=== PATIENT | female | born 1950 | race Caucasian/White ===

== ENCOUNTER → 2020-12-28 15:11 | Outpatient (CLI) | payer MEDICARE, SELFPAY ==
--- NOTE | ~2020-12-28 | MR_ITS ---
EXAMINATION: MR knee RT wo con DATE: 12/28/2020 16:09 INDICATION: Right knee pain. TECHNIQUE: Magnetic resonance imaging (MRI) of the right knee was performed without intravenous contr ast. Sequences included axial PD-weighted FS FSE, coronal T1-weighted FSE, coronal PD-weighted FS FSE , and STIR FSE, sagittal PD-weighted FSE, sagittal T2-weighted FSE, and sagittal T2-weighted FS FSE. COMPARISON: None. FINDINGS: Medial compartment: There is a complex tear involving body and posterior horn of medial meniscus. There is shallow partia l-thickness cartilage loss of femoral condyle involving the medial articular surface. There is cartil age surface irregularity of tibial condyle. There is subchondral edema-like marrow signal intensity i nvolving the tibial condyle anteromedially. Marginal osteophytes are noted. Lateral compartment: Lateral meniscus is normal. There is cartilage surface irregularity of tibial condyle. Femoral cartil age is normal. Patellofemoral compartment: There is full-thickness cartilage loss of patellar median ridge and medial facet with mild subchondra l edema-like marrow signal intensity. There is full-thickness cartilage loss of central trochlea with mild subchondral edema-like marrow signal intensity. Marginal osteophytes are noted. Ligaments and tendons: The anterior and posterior cruciate ligaments are normal. Medial collateral ligaments and lateral col lateral ligament complex are intact. There is mild patellar tendinopathy. Fluid: There is a small knee joint effusion. There is a small ruptured Malave's cyst. There is mild prepatell ar and superficial infrapatellar bursitis. IMPRESSION: 1. Severe chondrosis of patellofemoral compartment and mild chondrosis of medial and lateral compartm ents. 2. Tear of medial meniscus. 3. Small knee joint effusion. 4. Small ruptured Malave's cyst. Reviewed, dictated and finalized at location A. IMPRESSION: 1. Severe chondrosis of patellofemoral compartment and mild chondrosis of media l and lateral compartments. 2. Tear of medial meniscus. 3. Small knee joint effusion. 4. Small ruptured Malave's cyst.
== END ==
PROVIDERS: Visit Provider Nurse Practitioner Family
DX: M25.461 Effusion, right knee (principal); M71.21 Synovial cyst of popliteal space [Baker], right knee; S83.241A Other tear of medial meniscus, current injury, right knee, initial encounter; X58.XXXA Exposure to other specified factors, initial encounter
CPT/HCPCS: 73721

== ENCOUNTER 2025-04-10 13:49 | Outpatient (CLI) | payer MEDICARE, SELFPAY ==
--- NOTE | ~2025-04-10 | DEXA_ITS ---
Bone Density Report Name: ALICIA VARGAS Age: 74 Sex: Female Ethnicity: White Date of : 1950 Indication: hyperparathyroidism; height loss; Referring Provider: JULIET HAMMER Study: Bone densitometry was performed. Exam Date: April 10, 2025 Accession number: [id number] Bone Density: Region BMD T-score Z-score Classification AP Spine(L1-L4) 1.048 0.0 2.3 Normal Femoral Neck (Left) 0.763 -0.8 1.2 Normal Total Hip (Left) 1.035 0.8 2.4 Normal Femoral Neck (Right) 0.741 -1.0 1.0 Normal Total Hip (Right) 1.023 0.7 2.3 Normal Femoral Neck Mean 0.752 -0.9 1.1 Normal Total Hip Mean 1.029 0.7 2.4 Normal World Health Organization criteria for BMD impression classify patients as: Normal (T-score at or above -1.0), Osteopenia (T-score between -1.0 and -2.5), or Osteoporosis (T-score at or below -2.5). 10-year Fracture Risk: FRAX not reported because: All T-scores for Spine Total, Hip Total, Femoral Neck at or above -1.0 Clinical Information Provided by Patient: Smokes Has the following medical conditions: Hyperparathyroidism Patient maximum height was 64 Menopause Age: 52 Does not regularly consume dairy products Drinks caffeinated beverages Onset of menses at age 15 Number of children 2 Impression: The patient has normal bone mass. The patient has risk factors, including: smoking. Discussion: BONE DENSITY IS ABOVE THE MINIMUM DESIRABLE LEVEL AT ALL SKELETAL SITES TESTED. This patient?s bone mineral density is above the minimum desirable level (T-score -1.0 or better) at all sites measured. The patient should follow a healthful lifestyle (good nutrition with adequate calcium and vitamin D, and appropriate weight-bearing exercise). Follow-Up: Consider repeating this study in 5 years or sooner if there is some new clinical indication. Reported by: MONCHO on 04/10/2025 2:24:00 PM. Reviewed, dictated and finalized at location A.
--- NOTE | ~2025-04-10 | MM_ITS ---
EXAMINATION: MM screening ewa BI w julieth HISTORY: Screening TECHNIQUE: Craniocaudal and mediolateral oblique 3-D tomosynthesis images were obtained and synthetic 2-D images were generated. CAD analysis was submitted and interpreted. COMPARISON: No prior mammogram is available for comparison at this institution. BREAST PARENCHYMAL COMPOSITION: The breasts are heterogeneously dense, which may obscure small masses. FINDINGS: There is no evidence of suspicious mass, calcification, or architectural distortion to suggest malignancy. IMPRESSION: 1. No mammographic evidence of malignancy. Recommend routine screening mammography in one year. BI-RADS Category 2: Benign finding(s) Reviewed, dictated and finalized at location Q. IMPRESSION: 1. No mammographic evidence of malignancy. Recommend routine screening mammogra phy in one year. BI-RADS Category 2: Benign finding(s)
--- OUTSIDE RECORDS SUMMARY | 2025-04-10 13:55 | XMS_ITS | Patient Health Record ---
Author Organization [facility] dicine Address [address] [place] [address] Care Team Providers Care Line Walker Name Role Phone Dr. Valeri Holcomb Primary Care Provider [phone] Valeri Garcia Unavailable [phone] Migration, Provider Unavailable Unavailable Allergies Allergen (clinical drug ingredient) Drug/Non Drug Allergy documented on EMR Reaction Allergy Type Onset Date Status rosuvastatin Crestor muscle cramps Drug Allergy 10/24/2021 Active pregabalin Lyrica Unknown Drug Allergy 11/20/2020 Activ e atorvastatin Atorvastatin muscle cramps Drug Allergy 022 Active ritonavir Paxlovid (150/100) rash to neck and torso Drug Allergy 03/22/2022 Active nirmatrelvir Paxlovid (150/100) rash to neck and torso Drug Allergy 03/22/2022 Active Results Component Value Reference Range Flag Notes Free T4 And TSH Reviewed date:10/08/2024 05:54:25 PM Interpretation: Performing Lab: Notes/Report: [facility] # [id number] Test Performed by: [address] [address] Utility System Repairer: Philip Remy DO T4 Free 0.70 0.60-1.70 ng/dL TSH 3.50 0.45-5.33 mcIU/mL Pathology Tissue Request Reviewed date:02/27/2025 09:06:18 AM Interpretation: Performing Lab: Notes/Report: [facility] # [id number] Test Performed by: [address] [address] Utility System Repairer: Philip Remy DO Tissue Request See Below FINAL DIAGNOSIS Skin of left side of neck, excision: Benign keratosis, irritated and chronically inflamed Completely excised [facility], [address] [place], [place] [address] Electronically Signed: 02/24/2025 Philip Remy DO TISSUES 1 Skin of left side of neck CLINICAL HISTORY Procedure Performed: Shave bx Preoperative diagnosis: Atypical nodule Postoperative diagnosis: D48.5 GROSS DESCRIPTION Specimen 1 left neck: Received in formalin is a 0.5 x 0.4 cm hernandez, raised skin shave. The resection margin is inked green. The specimen is bisected, submitted entirely in cassette 1A. Dictated by HLW 02/20/2025 2:56:23 PM CDT Gross reviewed: 02/20/25 rkr Hemoglobin A1c {Glycosylated } Reviewed date:09/17/2024 10:01:54 PM Interpretation: Performing Lab: Notes/Report: Test Performed by: [place] [id number] Utility System Repairer: Philip Remy DO Hemoglobin A1c 6.3 <=6.4 % Hemoglobin A1C < 5.7% = Normal 5.7-6.4% = Increased risk for future diabetes >=6.5% = Diabetes eAvg Glucose 134 <=117 mg/dL H eAG Reference Range <117 mg/dL = Normal 117-137 mg/dL = Increased Risk For Future Diabetes >137 mg/dL = Diabetes Vitamin D 25 Hydroxy Reviewed date:09/17/2024 10:01:54 PM Interpretation: Performing Lab: Notes/Report: Test Performed by: [place] [id number] Utility System Repairer: Philip Remy DO Vitamin D 25 OH 29 30-100 ng/mL L Vitamin D25 Interpretation: Deficient: <= 20 ng/mL Insufficient: 21-29 ng/mL Sufficient: 30-100 ng/mL Upper Safety Limit: >100 ng/mL T4 Free Reviewed date:09/17/2024 10:01:54 PM Interpretation: Performing Lab: Notes/Report: Test Performed by: [place] [id number] Utility System Repairer: Philip Remy DO T4 Free 0.55 0.60-1.70 ng/dL L CBC w Auto Diff Reviewed date:09/17/2024 10:01:54 PM Interpretation: Performing Lab: Notes/Report: Test Performed by: [place] [id number] Utility System Repairer: Philip Remy DO WBC 6.6 4.0-11.7 K/mcL RBC 4.16 3.80-5.41 x10*6/mcL Hgb 13.2 11.3-15.2 g/dL Hct 38.6 33.2-45.3 % MCV 92.7 79.5-98.1 fL MCH 31.7 27.0-34.2 pg MCHC 34.2 31.8-35.3 g/dL RDW 13.1 12.0-16.4 % Platelets 314 149-393 K/mcL MPV 7.6 7.0-11.0 fL Neutro Auto 68.1 45.3-79.0 % Lymph Auto 21.4 11.8-45.9 % [place] Auto 7.6 4.4-12.0 % Eosinophil Auto 2.2 0.0-6.3 % Basophil Auto 0.7 0.2-1.6 % Neutro Absolute 4.5 2.4-8.4 x10*3/mcL Lymph Absolute 1.4 0.8-3.7 x10*3/mcL [place] Absolute 0.5 0.3-1.1 x10*3/mcL Eos Absolute 0.1 0.0-0.5 x10*3/mcL Comprehensive Metabolic Pane l Reviewed date:09/17/2024 10:01:54 PM Interpretation: Performing Lab: Notes/Report: Test Performed by: [place] [id number] Utility System Repairer: Philip Remy DO Glucose Lvl 110 74-109 mg/dL H ADA risk stratification for diabetes <100 mg/dL = Normal 100-125 mg/dL = Increased risk for future diabetes >=126 mg/dL = Diabetes, if on more than one testing occasion BUN 17 7-25 mg/dL Creatinine Lvl 0.80 0.60-1.20 mg/dL eGFR CKD-EPI 78 >=90 mL/min/1.73 m2 L The CKD-EPI equation is validated in individuals 18 years of age and older. It is less accurate in patients with extremes of muscle mass, restriction of dietary protein, ingestion of creatine, extra-renal metabolism of creatinine, or treatment with medications that affect renal tubular creatinine secretion. GFR Categories in Chronic Kidney Disease (CKD) GFR GFR (mL/min/1.73 Category: square meters): Interpretation: G1 90 or greater Normal or high* G2 60-89 Mild decrease* G3a 45-59 Mild to moderate decrease G3b 30-44 Moderate to severe decrease G4 15-29 Severe decrease G5 14 or less Kidney failure *In the absence of evidence of kidney damage, neither GFR category G1 nor G2 fulfill the criteria for CKD (Kidney Int Suppl 2013;3:1-150) Calcium Lvl 9.8 8.6-10.3 mg/dL Sodium Lvl 138 136-145 mmol/L Potassium Lvl 4.9 3.5-5.1 mmol/L Chloride Lvl 104 98-107 mmol/L CO2 28 21-31 mmol/L Anion Gap 6.2 <=16.0 mmol/L Alk Phos 82 34-104 unit/L Bilirubin Total 0.8 0.3-1.0 mg/dL Albumin Lvl 4.6 3.5-5.2 g/dL Protein Total 6.6 6.4-8.9 g/dL Albumin/Globulin Ratio 2.4 1.1-2.5 ALT 38 7-52 unit/L AST 28 13-39 unit/L Lipid Panel {Chol, Trig, HDL , LDL} Reviewed date:09/17/2024 10:01:54 PM Interpretation: Performing Lab: Notes/Report: Test Performed by: [place] [address] Utility System Repairer: Philip Remy DO Cholesterol Total 220 <=199 mg/dL H Triglycerides 284 0-149 mg/dL H Triglyceride Reference Ranges: <150 mg/dL Normal 150 - 199 mg/dL Borderline High 200 - 499 mg/dL High >=500 mg/dL Very High LDL 125 <=100 mg/dL H LDL Optimal: <100 Near or above optimal: 100-129 Borderline high: 130-159 High: 160-189 Very high: >=190 Coronary heart disease risk factors should be considered when determining LDL goals. Please refer to ATPIII guidelines for further information. If LDL is not calculated, please call the lab to add on the direct LDL methodology, if desired. HDL 38 23-92 mg/dL Non HDL Cholesterol 182 <=130 mg/dL H Chol/HDL 6 0-5 H Coronary Risk 17 Coronary Risk Factor - Male Dangerous Risk: <7 % High Risk: 7-15 % Average Risk: 15-25 % Below Average Risk: 25-37 % Coronary Risk Factor - Female Dangerous Risk: <12 % High Risk: 12-18 % Average Risk: 18-27 % Below Average Risk: 27-40 % Thyroid Stimulating Hormone Reviewed date:09/17/2024 10:02:14 PM Interpretation: Performing Lab: Notes/Report: Test Performed by: [place] [address] Utility System Repairer: Philip Remy DO TSH 3.78 0.45-5.33 mcIU/mL Vitamin B12 Reviewed date:09/17/2024 10:02:14 PM Interpretation: Performing Lab: Notes/Report: Test Performed by: [place] [address] Utility System Repairer: Philip Remy DO Vitamin B12 Lvl 265 180-914 pg/mL Vitamin B12 Interpretation: Normal Range: 180-914 pg/mL Indeterminate: 140-180 pg/mL Deficient: <140 pg/mL Hemoglobin A1c {Glycosylated } Reviewed date:02/11/2025 08:58:16 PM Interpretation: Performing Lab: Notes/Report: Test Performed by: [place] [address] Utility System Repairer: Philip Remy DO Hemoglobin A1c 6.0 <=6.4 % Hemoglobin A1C < 5.7% = Normal 5.7-6.4% = Increased risk for future diabetes >=6.5% = Diabetes eAvg Glucose 126 <=117 mg/dL H eAG Reference Range <117 mg/dL = Normal 117-137 mg/dL = Increased Risk For Future Diabetes >137 mg/dL = Diabetes Vitamin D 25 Hydroxy Reviewed date:02/11/2025 08:58:16 PM Interpretation: Performing Lab: Notes/Report: Test Performed by: [place] [id number] Utility System Repairer: Philip Remy DO Vitamin D 25 OH 39 30-100 ng/mL Vitamin D25 Interpretation: Deficient: <= 20 ng/mL Insufficient: 21-29 ng/mL Sufficient: 30-100 ng/mL Upper Safety Limit: >100 ng/mL T4 Free Reviewed date:02/11/2025 08:58:16 PM Interpretation: Performing Lab: Notes/Report: Test Performed by: [place] [id number] Utility System Repairer: Philip Remy DO T4 Free 0.70 0.60-1.70 ng/dL CBC w Auto Diff Reviewed date:02/11/2025 08:58:16 PM Interpretation: Performing Lab: Notes/Report: Test Performed by: [place] [id number] Utility System Repairer: Philip Remy DO WBC 5.8 4.0-11.7 K/mcL RBC 4.11 3.80-5.41 x10*6/mcL Hgb 12.8 11.3-15.2 g/dL Hct 38.2 33.2-45.3 % MCV 93.0 79.5-98.1 fL MCH 31.2 27.0-34.2 pg MCHC 33.6 31.8-35.3 g/dL RDW 13.0 12.0-16.4 % Platelets 322 149-393 K/mcL MPV 7.2 7.0-11.0 fL Neutro Auto 65.1 45.3-79.0 % Lymph Auto 22.1 11.8-45.9 % [place] Auto 10.1 4.4-12.0 % Eosinophil Auto 2.1 0.0-6.3 % Basophil Auto 0.6 0.2-1.6 % Neutro Absolute 3.8 2.4-8.4 x10*3/mcL Lymph Absolute 1.3 0.8-3.7 x10*3/mcL [place] Absolute 0.6 0.3-1.1 x10*3/mcL Eos Absolute 0.1 0.0-0.5 x10*3/mcL Comprehensive Metabolic Pane l Reviewed date:02/11/2025 08:58:16 PM Interpretation: Performing Lab: Notes/Report: Test Performed by: [address] [address] Utility System Repairer: Philip Remy DO Glucose Lvl 94 74-109 mg/dL ADA risk stratification for diabetes <100 mg/dL = Normal 100-125 mg/dL = Increased risk for future diabetes >=126 mg/dL = Diabetes, if on more than one testing occasion BUN 18 7-25 mg/dL Creatinine Lvl 0.76 0.60-1.20 mg/dL eGFR CKD-EPI 83 >=90 mL/min/1.73 m2 L The CKD-EPI equation is validated in individuals 18 years of age and older. It is less accurate in patients with extremes of muscle mass, restriction of dietary protein, ingestion of creatine, extra-renal metabolism of creatinine, or treatment with medications that affect renal tubular creatinine secretion. GFR Categories in Chronic Kidney Disease (CKD) GFR GFR (mL/min/1.73 Category: square meters): Interpretation: G1 90 or greater Normal or high* G2 60-89 Mild decrease* G3a 45-59 Mild to moderate decrease G3b 30-44 Moderate to severe decrease G4 15-29 Severe decrease G5 14 or less Kidney failure *In the absence of evidence of kidney damage, neither GFR category G1 nor G2 fulfill the criteria for CKD (Kidney Int Suppl 2013;3:1-150) Calcium Lvl 9.5 8.6-10.3 mg/dL Sodium Lvl 138 136-145 mmol/L Potassium Lvl 4.5 3.5-5.1 mmol/L Chloride Lvl 105 98-107 mmol/L CO2 28 21-31 mmol/L Anion Gap 4.6 <=16.0 mmol/L Alk Phos 73 34-104 unit/L Bilirubin Total 0.7 0.3-1.0 mg/dL Albumin Lvl 4.3 3.5-5.2 g/dL Protein Total 6.3 6.4-8.9 g/dL L Albumin/Globulin Ratio 2.2 1.1-2.5 ALT 28 7-52 unit/L AST 20 13-39 unit/L Lipid Panel {Chol, Trig, HDL , LDL} Reviewed date:02/11/2025 08:58:16 PM Interpretation: Performing Lab: Notes/Report: Test Performed by: Cristiane Padron [address] [address] Utility System Repairer: Philip Remy DO Cholesterol Total 214 <=199 mg/dL H Triglycerides 215 0-149 mg/dL H Triglyceride Reference Ranges: <150 mg/dL Normal 150 - 199 mg/dL Borderline High 200 - 499 mg/dL High >=500 mg/dL Very High LDL 137 <=100 mg/dL H LDL Optimal: <100 Near or above optimal: 100-129 Borderline high: 130-159 High: 160-189 Very high: >=190 Coronary heart disease risk factors should be considered when determining LDL goals. Please refer to ATPIII guidelines for further information. If LDL is not calculated, please call the lab to add on the direct LDL methodology, if desired. HDL 34 23-92 mg/dL Non HDL Cholesterol 180 <=130 mg/dL H Chol/HDL 6 0-5 H Thyroid Stimulating Hormone Reviewed date:02/11/2025 08:58:16 PM Interpretation: Performing Lab: Notes/Report: Test Performed by: [place] [address] Utility System Repairer: Philip Remy DO TSH 3.80 0.45-5.33 mcIU/mL Vitamin B12 Reviewed date:02/11/2025 08:58:16 PM Interpretation: Performing Lab: Notes/Report: Test Performed by: [address] [address] Utility System Repairer: Philip Remy DO Vitamin B12 Lvl >1500 180-914 pg/mL H Vitamin B12 Interpretation: Normal Range: 180-914 pg/mL Indeterminate: 140-180 pg/mL Deficient: <140 pg/mL Vitamin B12 Reviewed date:01/22/2025 08:37:37 AM Interpretation: Performing Lab: Notes/Report: Test Performed by: [address] [address] Utility System Repairer: Philip Remy DO Report Forwarded By: [address] [place] [address] Vitamin B12 Lvl 223 180-914 pg/mL Vitamin B12 Interpretation: Normal Range: 180-914 pg/mL Indeterminate: 140-180 pg/mL Deficient: <140 pg/mL Thyroid Stimulating Hormone Reviewed date:01/22/2025 08:37:37 AM Interpretation: Performing Lab: Notes/Report: Test Performed by: [address] [address] Utility System Repairer: Philip Remy DO Report Forwarded By: [address] [place] [address] TSH 2.43 0.45-5.33 mcIU/mL Lipid Panel {Chol, Trig, HDL , LDL} Reviewed date:01/22/2025 08:37:37 AM Interpretation: Performing Lab: Notes/Report: Test Performed by: [address] [address] Utility System Repairer: Philip Remy DO Report Forwarded By: [address] [place] [address] Cholesterol Total 258 <=199 mg/dL H Triglycerides 214 0-149 mg/dL H Triglyceride Reference Ranges: <150 mg/dL Normal 150 - 199 mg/dL Borderline High 200 - 499 mg/dL High >=500 mg/dL Very High LDL 173 <=100 mg/dL H LDL Optimal: <100 Near or above optimal: 100-129 Borderline high: 130-159 High: 160-189 Very high: >=190 Coronary heart disease risk factors should be considered when determining LDL goals. Please refer to ATPIII guidelines for further information. If LDL is not calculated, please call the lab to add on the direct LDL methodology, if desired. HDL 43 23-92 mg/dL Non HDL Cholesterol 216 <=130 mg/dL H Chol/HDL 6 0-5 H Coronary Risk 17 Coronary Risk Factor - Male Dangerous Risk: <7 % High Risk: 7-15 % Average Risk: 15-25 % Below Average Risk: 25-37 % Coronary Risk Factor - Female Dangerous Risk: <12 % High Risk: 12-18 % Average Risk: 18-27 % Below Average Risk: 27-40 % Comprehensive Metabolic Pane l Reviewed date:01/22/2025 08:37:37 AM Interpretation: Performing Lab: Notes/Report: Test Performed by: [address] [address] Utility System Repairer: Philip Remy DO Report Forwarded By: [address] [place] [address] Glucose Lvl 158 74-109 mg/dL H ADA risk stratification for diabetes <100 mg/dL = Normal 100-125 mg/dL = Increased risk for future diabetes >=126 mg/dL = Diabetes, if on more than one testing occasion BUN 14 7-25 mg/dL Creatinine Lvl 0.77 0.60-1.20 mg/dL eGFR CKD-EPI 82 >=90 mL/min/1.73 m2 L The CKD-EPI equation is validated in individuals 18 years of age and older. It is less accurate in patients with extremes of muscle mass, restriction of dietary protein, ingestion of creatine, extra-renal metabolism of creatinine, or treatment with medications that affect renal tubular creatinine secretion. GFR Categories in Chronic Kidney Disease (CKD) GFR GFR (mL/min/1.73 Category: square meters): Interpretation: G1 90 or greater Normal or high* G2 60-89 Mild decrease* G3a 45-59 Mild to moderate decrease G3b 30-44 Moderate to severe decrease G4 15-29 Severe decrease G5 14 or less Kidney failure *In the absence of evidence of kidney damage, neither GFR category G1 nor G2 fulfill the criteria for CKD (Kidney Int Suppl 2013;3:1-150) Calcium Lvl 9.5 8.6-10.3 mg/dL Sodium Lvl 138 136-145 mmol/L Potassium Lvl 4.6 3.5-5.1 mmol/L Chloride Lvl 103 98-107 mmol/L CO2 28 21-31 mmol/L Anion Gap 6.9 <=16.0 mmol/L Alk Phos 77 34-104 unit/L Bilirubin Total 0.6 0.3-1.0 mg/dL Albumin Lvl 4.5 3.5-5.2 g/dL Protein Total 6.4 6.4-8.9 g/dL Albumin/Globulin Ratio 2.4 1.1-2.5 ALT 27 7-52 unit/L AST 21 13-39 unit/L CBC w Auto Diff Reviewed date:01/22/2025 08:37:37 AM Interpretation: Performing Lab: Notes/Report: Test Performed by: Cristiane Padron [address] [address] Utility System Repairer: Philip Remy DO Report Forwarded By: [id number] [address] WBC 6.8 4.0-11.7 K/mcL RBC 4.13 3.80-5.41 x10*6/mcL Hgb 13.3 11.3-15.2 g/dL Hct 39.0 33.2-45.3 % MCV 94.6 79.5-98.1 fL MCH 32.1 27.0-34.2 pg MCHC 34.0 31.8-35.3 g/dL RDW 13.0 12.0-16.4 % Platelets 341 149-393 K/mcL MPV 7.6 7.0-11.0 fL Neutro Auto 64.2 45.3-79.0 % Lymph Auto 25.8 11.8-45.9 % [place] Auto 7.2 4.4-12.0 % Eosinophil Auto 2.1 0.0-6.3 % Basophil Auto 0.7 0.2-1.6 % Neutro Absolute 4.4 2.4-8.4 x10*3/mcL Lymph Absolute 1.8 0.8-3.7 x10*3/mcL [place] Absolute 0.5 0.3-1.1 x10*3/mcL Eos Absolute 0.1 0.0-0.5 x10*3/mcL T4 Free Reviewed date:01/22/2025 08:37:37 AM Interpretation: Performing Lab: Notes/Report: Test Performed by: [place] [address] Utility System Repairer: Philip Remy DO Report Forwarded By: [address] [place] [address] T4 Free 0.70 0.60-1.70 ng/dL Vitamin D 25 Hydroxy Reviewed date:01/22/2025 08:37:37 AM Interpretation: Performing Lab: Notes/Report: Test Performed by: [address] [address] Utility System Repairer: Philip Remy DO Report Forwarded By: [address] [place] [address] Vitamin D 25 OH 28 30-100 ng/mL L Vitamin D25 Interpretation: Deficient: <= 20 ng/mL Insufficient: 21-29 ng/mL Sufficient: 30-100 ng/mL Upper Safety Limit: >100 ng/mL Hemoglobin A1c {Glycosylated } Reviewed date:01/22/2025 08:37:37 AM Interpretation: Performing Lab: Notes/Report: Test Performed by: [place] [id number] Utility System Repairer: Philip Remy DO Report Forwarded By: [address] [place] [address] Hemoglobin A1c 6.5 <=6.4 % H Hemoglobin A1C < 5.7% = Normal 5.7-6.4% = Increased risk for future diabetes >=6.5% = Diabetes eAvg Glucose 140 <=117 mg/dL H eAG Reference Range <117 mg/dL = Normal 117-137 mg/dL = Increased Risk For Future Diabetes >137 mg/dL = Diabetes Charge Venipuncture Reviewed date:01/22/2025 08:37:37 AM Interpretation: Performing Lab: Notes/Report: Report Forwarded By: [address] [place] [address] Reason For Referral No Information Medications Medication SIG (Take, Route, Frequency, Duration) Notes Start Date End Date Status Tylenol 8 Hour Arthritis Pain 650 MG Tablet Extended Release 1 Oral three times a day; Duration: 0 05/06/2021 Active Magnesium oral; Duration: 0 *Pick strength-form from [facility] for eRX* 11/24/2021 Active Vitamin D3 25 MCG (1000 UT) Capsule 1 Oral every day; Duration: 0 11/24/2021 Active B complex-vitamin C-folic acid 400 mcg Tablet(s) 1 BY MOUTH every day; Duration: 0 *Reorder from [facility] for eRx and Interaction Alerts* 11/24/2021 Active Olmesartan Medoxomil 20 MG Tablet Oral; Duration: 30 Days Active Lipoic Acid miscellaneous; Duration: 0 *Pick strength-form from [facility] for eRX* 11/24/2021 Active SUMAtriptan Succinate 100 MG Tablet 1 tablet as needed, may take second dose at least 2 hours after first dose up to 2 tablets per day as needed Orally Once a day Active Gabapentin 300 MG Capsule 1 Oral every night at bedtime; Duration: 90 days Active Xyzal Active DULoxetine HCl 60 MG Capsule Delayed Release Particles 1 Oral every day; Duration: 90 days Active Rybelsus 7 MG Tablet 1 tablet at least 30 minutes before first food, beverage or other oral medicine of the day Orally daily; Duration: 30 days Active Gabapentin 100 MG Capsule 1 Oral every morning; Duration: 90 days Active Ezetimibe 10 MG Tablet 1 Oral every evening; Duration: 90 days Active Celecoxib 200 MG Capsule TAKE 1 CAPSULE WITH FOOD ORALLY DAILY; Duration: 90 Active Cholestyramine 4 GM Packet 1 packet mixed with water or non-carbonated drink Orally Once a day; Duration: 30 days Active Levothyroxine Sodium 50 MCG Tablet 1 tablet in the morning on an empty stomach Orally Once a day; Duration: 90 days Active Immunizations Vaccine Route Administration Date Status Comme ryan Moderna Covid-19 Vaccine 1st dose Unknown 07/24/2020 Administered ,sourcename : Historical information -from public agency Source VFC Code: : Moderna Covid-19 Vaccine 1st dose Unknown 08/21/2020 Administered ,sourcename : Historical information -from public agency Source VFC Code: : Moderna Covid-19 Vaccine 1st dose Unknown 04/27/2021 Administered Source VFC Code: : Moderna Covid-19 Vaccine 1st dose Unknown 04/26/2022 Administered Source VFC Code: : Zoster Unknown 2018 Administered ,sourcename : Historical information -from public agency Source VFC Code: : Zoster Unknown 01/24/2019 Administered ,sourcename : Historical information -from public agency Source VFC Code: : Zoster Unknown 04/18/2019 Administered ,sourcename : Historical information -from public agency Source VFC Code: : Social History Social History Additional Details Category Social Info Options Details Migrated Social History Migrated Social History Number of children:2 , Tobacco history:Never smoker , Employment:Currently employed ,notes : teacher ,notes: retired , Marital status: Problems Problem Type SNOMED Code ICD Code Onset Dates Problem Status W/U Status Risk Notes Problem Hypothyroidism (47423600) Hypothyroidism, unspecified (E03.9) Active confirmed Problem Nephropathy due to secondary diabetes mellitus (312977316496350) 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 Problem Mixed hyperlipidemia (511250612) Mixed hyperlipidemia (E78.2) Active confirmed Problem Essential hypertension (31478137) Essential hypertension (I10) Active confirmed Problem Mild depression (395871201) Mild depression (F32.A) Active confirmed Problem Polyneuropathy due to type 2 diabetes mellitus (769637988) DM type 2 with diabetic peripheral neuropathy (E11.42) Active confirmed Problem Hyperlipidemia (50002870) Hyperlipidemia, unspecified (E78.5) 09/12/19 24 Active confirmed Problem Mild recurrent major depression (11275537) Major depressive disorder, recurrent, mild (F33.0) 09/12/19 24 Active confirmed Problem Stress and adjustment reaction (disorder) (106635768) Reaction to severe stress, unspecified (F43.9) 09/12/19 24 Active confirmed Problem Sleep apnea (11253774) Sleep apnea, unspecified (G47.30) 11/25/19 22 Active confirmed Problem Carpal tunnel syndrome (40622814) Carpal tunnel syndrome, right upper limb (G56.01) 09/09/19 22 Active confirmed Problem Essential hypertension (97486906) Essential (primary) hypertension (I10) 09/12/19 24 Active confirmed Problem Disorder of nasal sinus (disorder) (8988054) Other specified disorders of nose and nasal sinuses (J34.89) 03/20/20 22 Active confirmed Problem Osteoarthritis (328598280) Unspecified osteoarthritis, unspecified site (M19.90) 05/06/20 21 Active confirmed Problem Spinal stenosis in cervical region (67716988) Spinal stenosis, cervical region (M48.02) 09/09/19 22 Active confirmed Problem Degeneration of cervical intervertebral disc (78445420) Other cervical disc degeneration, unspecified cervical region (M50.30) 11/25/19 22 Active confirmed Problem Paresthesia (finding) (03352745) Paresthesia of skin (R20.2) 09/09/19 22 Active confirmed Problem Postmenopausal state (42692271) Asymptomatic menopausal state (Z78.0) 06/08/20 22 Active confirmed Problem Health status (826704702) Other specified health status (Z78.9) 09/12/19 24 Active confirmed Vital Signs Heart Rate 87 /min 03/25/2025 Temperature 97.6 degrees Fahrenheit 03/25/2025 Respiratory Rate 16 /min 03/25/2025 Blood pressure diastolic 76 mm Hg 03/25/2025 Oximetry 95 % 03/25/2025 Height-cm 160.02 cm 03/25/2025 Weight-kg 87.45 kg 03/25/2025 Height 63.00 in 03/25/2025 Blood pressure systolic 118 mm Hg 03/25/2025 Weight 192.8 lbs 03/25/2025 BMI 34.15 kg/m2 03/25/2025 Procedures Procedure Date Ordered Date Performed Result Body Sit e SPECIAL EYE EVALUATION 03/10/2025 03/10/2025 N/A Encounters Encounter Location Date Provider Diagnosis [address] [address] 07/22/2024 Valeri Garcia Hyperlipidemia, unspecified E78.5 ; Essential (primary) hypertension I10 ; Major depressive disorder, recurrent, mild F33.0 ; Sleep apnea, unspecified G47.30 and Hypothyroidism, unspecified type E03.[address] [address] 09/24/2024 Dr. Valeri Holcomb Hyperlipidemia, unspecified E78.5 ; Essential (primary) hypertension I10 ; Type 2 diabetes mellitus with diabetic neuropathy, unspecified E11.40 ; Hypothyroidism, unspecified E03.9 ; Vitamin B12 deficiency E53.8 ; Vitamin D deficiency E55.9 ; Sleep apnea, unspecified G47.30 and Mild depression F32.A [address] [address] 02/16/2025 Dr. Valeri Holcomb Mixed hyperlipidemia E78.2 ; Encounter for general adult medical examination with abnormal findings Z00.01 ; Essential hypertension I10 ; Breast cancer screening by mammogram Z12.31 ; Allergy to statin medication Z88.8 ; DM type 2 with diabetic peripheral neuropathy E11.42 ; Seborrheic keratosis L82.1 ; Neoplasm of uncertain behavior of skin D48.5 and Postmenopausal Z78.[address] [address] 02/20/2025 Dr. Vaelri Holcomb Neoplasm of uncertain behavior of skin D48.[address] [address] 03/25/2025 Dr. Valeri Holcomb Type 2 diabetes mellitus with diabetic neuropathy, unspecified E11.40 ; Diabetic cataract E11.36 ; Essential hypertension I10 ; Hypothyroidism, unspecified E03.9 and Hyperlipidemia, unspecified E78.[address] [address] 05/24/2024 Provider Migration [address] [address] 05/25/2024 Provider Migration [address] [address] 07/23/2024 Valeri Garcia Hyperlipidemia, unspecified E78.[address] [address] 09/17/2024 Dr. Valeri Holcomb Hyperlipidemia, unspecified E78.5 ; Essential (primary) hypertension I10 ; Type 2 diabetes mellitus with diabetic neuropathy, unspecified E11.40 ; Hypothyroidism, unspecified E03.9 ; Vitamin B12 deficiency E53.8 and Vitamin D deficiency E55.[address] [address] 10/08/2024 Dr. Valeri Holcomb [address] [address] 11/13/2024 Dr. Valeri Holcomb Type 2 diabetes mellitus with diabetic neuropathy, unspecified E11.[address] [address] 12/12/2024 Dr. Valeri Holcomb [address] [address] 01/02/2025 Dr. Valeri Holcomb Hyperlipidemia, unspecified E78.[address] [address] 01/30/2025 Dr. Valeri Holcomb [address] [address] 02/11/2025 Dr. Valeri Holcomb Hyperlipidemia, unspecified E78.5 ; Essential (primary) hypertension I10 ; Hypothyroidism, unspecified E03.9 ; Type 2 diabetes mellitus with diabetic neuropathy, unspecified E11.40 ; Vitamin B12 deficiency E53.8 and Vitamin D deficiency E55.[address] [address] 02/16/2025 Dr. Valeri Holcomb [address] [address] 03/21/2025 Dr. Valeri Holcomb Hyperlipidemia, unspecified E78.5 Assessments Encounter Date Diagnosis (ICD Code) Assessment Notes Treatment Notes Treatment Clinical Notes Section Notes 09/17/2024 Hyperlipidemia, unspecified (ICD-10 - E78.5) 02/11/2025 Hyperlipidemia, unspecified (ICD-10 - E78.5) 02/11/2025 Essential (primary) hypertension (ICD-10 - I10) 11/13/2024 Type 2 diabetes mellitus with diabetic neuropathy, unspecified (ICD-10 - E11.40) 01/02/2025 Hyperlipidemia, unspecified (ICD-10 - E78.5) 02/16/2025 Mixed hyperlipidemia (ICD-10 - E78.2) Hypercholesterolemia:- Hypercholesterolemia managed with ezetimibe (Zetia). Statins not tolerated.- Discussed PCSK9 inhibitors; patient does not qualify due to zero coronary calcium score and lack of additional high-risk other than DM2 - can consider in future.- Continue current therapy 02/16/2025 Encounter for general adult medical examination with abnormal findings (ICD-10 - Z00.01) Preventive care (mammogram, bone density, vaccinations):- Patient is overdue for mammogram and bone density screening. Both tests scheduled [facility] at [facility].- Discussed pneumonia and tetanus vaccination; patient declined pneumonia vaccine and deferred tetanus vaccine to a future visit. Advised can receive tetanus vaccine at pharmacy or our office without appointment.- Discussed prior adverse reactions to shingles vaccine. 09/17/2024 Essential (primary) hypertension (ICD-10 - I10) 07/22/2024 Essential (primary) hypertension (ICD-10 - I10) - Blood pressure inconsistencies noted, with some days being low (e.g., top number around 100 or lower). Currently taking a combination blood pressure medication at half the dose due to low readings instructed to do so by PCP. - Continue with diet modification, exercise, weight loss and medication compliance for best BP control. - Contact office if continued issues with [employer] BP system monitoring. - Continue taking half the dose of the current blood pressure medication. Refill prescription with the adjusted half-dose. 07/23/2024 Hyperlipidemia, unspecified (ICD-10 - E78.5) 09/24/2024 Hyperlipidemia, unspecified (ICD-10 - E78.5) consider PSK-9 inhibitor. Pt should continue zetia and questran. 09/24/2024 Essential (primary) hypertension (ICD-10 - I10) No changes to medication, combo of olmesartan/almlodipine. 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 Wash area gently with soap and water. Monitor for signs and symptoms of infection and call the office with any questions or concerns. Patient will be contacted with pathology results when available. 03/21/2025 Hyperlipidemia, unspecified (ICD-10 - E78.5) 03/25/2025 Type 2 diabetes mellitus with diabetic neuropathy, unspecified (ICD-10 - E11.40) HBA1C 6.28 August 2023. Type 2 diabetes mellitus: - Type 2 diabetes mellitus, well controlled on Rybelsus. - Most recent A1c is 6.0. - No evidence of diabetic retinopathy or nephropathy. - No need for dose escalation at this time. - Continue current dose of Rybelsus and monitor A1c at regular intervals. - Maintain current weight and lifestyle modifications. - Next laboratory evaluation scheduled for October 14, 2025, unless symptoms develop. Neuropathy: - Neuropathy symptoms localized to the back, attributed to spinal cord/disc pathology rather than diabetic neuropathy. - Sensory deficits noted on examination. - Continue daily back strengthening exercises and weights as previously recommended. - Incorporate flexibility exercises such as yoga to support core strength and balance. - Monitor for changes in symptoms and report any new or worsening numbness, tingling, or weakness. - Report any changes in blood sugar control or new symptoms. 03/25/2025 Diabetic cataract (ICD-10 - E11.36) Cataracts: - Moderate, fast-growing cataracts bilaterally. - No evidence of diabetic vascular damage in the eyes. - Surgical intervention planned with ophthalmology. - Proceed with scheduled ophthalmology consultation on April 09, 2025, for cataract surgery planning. - Expectation of improved vision post-surgery; discuss options for glasses-free vision with senior accountant cpa. 07/22/2024 Hyperlipidemia, unspecified (ICD-10 - E78.5) - Chronic, stable. - Continue Zetia. Checking Lipid panel. 07/22/2024 Major depressive disorder, recurrent, mild (ICD-10 - F33.0) 03/25/2025 Essential hypertension (ICD-10 - I10) Hypertension: - Hypertension managed with olmesartan, currently on half of a 20 mg tablet. - Blood pressure readings have been low at times, but current regimen excludes amlodipine and diuretic. - Blood pressure today is 118/76 mmHg. - Medication adjustment has reduced risk of hypotension and is protective for renal function. - Continue current olmesartan regimen and monitor blood pressure regularly at home. - Maintain adequate hydration, aiming for light yellow or clear urine. - If blood pressure readings remain low or symptoms of hypotension (dizziness, fatigue) occur, consider further reduction or discontinuation of medication. - Patient may be able to discontinue olmesartan if blood pressure remains stable at lower readings. - No blood work needed until October 14, 2025, unless symptoms arise. - Continue dietary modifications and report any new symptoms or changes in blood pressure. 09/17/2024 Type 2 diabetes mellitus with diabetic neuropathy, unspecified (ICD-10 - E11.40) 02/16/2025 Essential hypertension (ICD-10 - I10) - Borderline low diastolic blood pressure, likely related to current antihypertensive regimen including hydrochlorothiazide.- Discontinued hydrochlorothiazide. Changed regimen to olmesartan/amlodipine combination without diuretic. Prescribed new medication at [facility].- Continue home blood pressure monitoring. Patient may cancel March 25 appointment if blood pressure is stable, otherwise keep for blood pressure recheck.- Monitor for dizziness and hypotension; if blood pressure remains low, consider further dose adjustment or splitting olmesartan/amlodipine. 09/24/2024 Type 2 diabetes mellitus with diabetic neuropathy, unspecified (ICD-10 - E11.40) trial of rhybelsus 3mg daily for weight loss with DM2, which is diet controlled. 02/11/2025 Hypothyroidism, unspecified (ICD-10 - E03.9) 02/11/2025 Type 2 diabetes mellitus with diabetic neuropathy, unspecified (ICD-10 - E11.40) 02/16/2025 Breast cancer screening by mammogram (ICD-10 - Z12.31) schedule mammogram. 09/24/2024 Hypothyroidism, unspecified (ICD-10 - E03.9) TSH is OK but Free T4 is low. Consider recheck 09/17/2024 Hypothyroidism, unspecified (ICD-10 - E03.9) 03/25/2025 Hypothyroidism, unspecified (ICD-10 - E03.9) This condition is stable. Recommend continuing medicine and routine labs/monitoring and appointments as scheduled. 07/22/2024 Sleep apnea, unspecified (ICD-10 - G47.30) - Using a CPAP machine with some difficulties in setup and monitoring. Reports improvement in energy levels since starting CPAP therapy.- Follow-up appointment scheduled for October 27 at a sleep center to address CPAP machine issues and ensure proper setup. 03/25/2025 Hyperlipidemia, unspecified (ICD-10 - E78.5) This condition is stable. Recommend continuing medicine and routine labs/monitoring and appointments as scheduled. On Zetia. 02/16/2025 Allergy to statin medication (ICD-10 - Z88.8) 07/22/2024 Hypothyroidism, unspecified type (ICD-10 - E03.9) - History of hypothyroidism, currently taking levothyroxine 50 mcg. - Check thyroid panel before refilling levothyroxine to determine if a dosage adjustment is needed. 09/17/2024 Vitamin B12 deficiency (ICD-10 - E53.8) 09/24/2024 Vitamin B12 deficiency (ICD-10 - E53.8) start B12 2000mc daily. 02/11/2025 Vitamin B12 deficiency (ICD-10 - E53.8) 02/11/2025 Vitamin D deficiency (ICD-10 - E55.9) 02/16/2025 DM type 2 with diabetic peripheral neuropathy (ICD-10 - E11.42) Previously met diagnostic criteria for diabetes (A1c 6.5 in June 2024), currently improved to prediabetes range (A1c 6.0). On rybelsus 7 mg with weight loss of approximately 3 lbs and improved glycemic control.- Offered option to increase rybelsus to 14 mg for additional weight loss and glycemic benefit. Patient to consider and discuss at next visit. Continue current regimen if stable. Advised on increased fall risk due to decreased sensation, especially in low light or with vision changes. HBA1C 6.5% at Diagnosis Jun 2024 09/24/2024 Vitamin D deficiency (ICD-10 - E55.9) start 5000 IU daily until next visit. Will recheck in the future. 09/17/2024 Vitamin D deficiency (ICD-10 - E55.9) 09/24/2024 Sleep apnea, unspecified (ICD-10 - G47.30) See sleep specialist tomorrow. 02/16/2025 Seborrheic keratosis (ICD-10 - L82.1) Seborrheic keratoses and possible pyogenic granuloma:- Multiple seborrheic keratoses, benign and non-cancerous. One lesion possibly an inflamed seborrheic keratosis or pyogenic granuloma.- Scheduled removal of symptomatic lesion (possible pyogenic granuloma) by shave excision and cautery on February 20, 2025. Specimen to be sent for pathology to rule out basal cell carcinoma.- Other symptomatic lesions can be removed if bothersome. Discussed risks of local discomfort, bleeding, and need for wound care after removal. 02/16/2025 Neoplasm of uncertain behavior of skin (ICD-10 - D48.5) 09/24/2024 Mild depression (ICD-10 - F32.A) continue cymbalta which patient feels is doing well for her. 02/16/2025 Postmenopausal (ICD-10 - Z78.0) 09/24/2024 Other Labs to be ordred for 3 months to check levels and thyroid in 2 weeks repeat for error. 35 mins spent face to face, additionally 7 mins spent on day of service documenting. Diabetes - Currently well-controlled diabetes, previously recorded A1c of 6.5, now 6.3. Diet-controlled without medication. - Consider starting Rybelsus 3mg for weight loss, as it is indicated for diabetes. Discussed the option of weekly injections for weight loss, covered by insurance due to diabetes status. Recheck labs in 3 months. - Risks and side effects: Potential side effects of Rybelsus include nausea and diarrhea. If intolerable, can discontinue. Blood Pressure Management - Blood pressure readings show some inconsistency between home and office measurements. Current medication includes a combination of olmesartan, amlodipine, and hydrochlorothiazide. - Continue current blood pressure regimen. Await new cuff for home monitoring. Consider bringing the home machine to the office for comparison. CPAP Machine Issues - Poor mask fit and potential pressure issues with CPAP machine, leading to ineffective treatment. - Follow-up appointment scheduled for September 25, 2024, to address CPAP machine issues. Consider mask adjustment or pressure modification. Thyroid Function - Free T4 low, TSH normal. Possible thyroid dysfunction. - Recheck thyroid function in a couple of weeks. Consider adjusting thyroid medication if low free T4 persists. Vitamin Deficiencies - Low normal B12 and slightly low vitamin D levels. - Start B12 supplement 2000 mcg daily and vitamin D3 5000 IU daily for a few months. Recheck levels in 3 months. Celebrex Dosage - Currently taking Celebrex 200 mg twice daily, which is the maximum dose. - Adjust to 200 mg once daily to reduce potential risks. Can take a second dose if necessary but try to avoid. - Risks and side effects: Discussed potential risks of kidney issues, heart attack, stroke, and stomach issues with higher doses. Celebrex has a lower risk compared to other NSAIDs. Plan Of Treatment Pending Test Test Name Order Date Hemoglobin A1c 07/22/2024 Vitamin B12 07/22/2024 Thyroxine (T4) Free, Direct, S 5 TSH 07/22/2024 CBC With Differential/Platelet 5 Vitamin D, 25-Hydroxy 07/22/2024 Lipid Panel 07/22/2024 Comp. Metabolic Panel (14) 07/22/2024 MAMMOGRAM, SCREENING 02/16/2025 Bone Density 02/16/2025 Microalbumin Quantitative with Creatinin e 02/11/2025 Next Appt Details Provider Name:Dr. Valeri alejandro, 10/14/2025 11:00:00 AM, [address], [place], [address], [phone] Provider Name:Dr. Valeri alejandro, 02/03/2026 09:00:00 AM, [address], [place], [address], [phone] Insurance Providers Payer Name Payer Address Payer Phone Subscriber Number Group Number Insured Name Patient Relationship to Insured Coverage Start Date Coverage End Date [employer] Advantage Ppo [address] [place] [address] [id number] Ibis Chiang Self - patient is the insured 3 Medical (General) History Medical History History ICD Code Hyperlipidemia, unspecified E78.5 Major depressive disorder, recurrent, mi ld F33.0 Sleep apnea, unspecified G47.30 Carpal tunnel syndrome, right upper limb G56.01 Essential (primary) hypertension I10 Type 2 diabetes mellitus with diabetic n europathy, unspecified E11.40 Hypothyroidism, unspecified E03.9 Mild depression F32.A Surgical History Surgery Date(Month/Year) Cardiac Catherization ,notes : [address] Griffith ([id number]) REPAIR OF PERINEUM ,notes : 1983 . 1978 fistula removed Colonoscopy; Dr. Olmos, Repeat 10 yea rs 06/03/2020
== END 2025-04-10 13:50 | disposition home or self-care (01) ==
PROVIDERS: PCP Family Medicine; Visit Provider Family Medicine
DX: Z12.31 Encounter for screening mammogram for malignant neoplasm of breast (principal); Z78.0 Asymptomatic menopausal state
CPT/HCPCS: 77063; 77067; 77080